=== PATIENT | male | born 1955 | race Caucasian/White ===

== ENCOUNTER 2017-09-03 11:35 | Emergency (ER) | payer MEDICARE ==
[~2017-09-03] VITALS: Ht 180.3 cm; Wt 68.0 kg
[2017-09-03] MEDS ORDERED: Diclofenac Sodi50 MG PO (12:39)
== END 2017-09-03 12:42 | disposition home or self-care (01) ==
LOC: ER 11:35
DX: M54.5 Low back pain (principal); G89.29 Other chronic pain; Z79.899 Other long term (current) drug therapy
CPT/HCPCS: 72070; 72100; 99283